=== PATIENT | female | born 1955 | race Caucasian/White ===

== ENCOUNTER 2024-03-25 12:35 | Emergency (ER) | payer MEDICARE, SELFPAY ==
[2024-03-25 12:44] VITALS: BP 131/89; PULSE 87; RESP 18; TEMP 36.7; O2SAT 96
--- NOTE | 2024-03-25 13:15 | EKG_ITS ---
[facility] Test Date: 2024-03-25 Pat Name: JOSSELIN CHARLES Department: Room: - Gender: Female Vice President Of Business Development: : 1955 Requested By: Edward Ochoa (RADHA) Order Number: [id number] Reading MD: Edward Ochoa (NUMERICAL CONTROL TOOL PROGRAMMER) Measurements Intervals [place] Rate: 74 P: 48 CO: 144 QRS: 31 QRSD: 91 T: 31 QT: 394 QTc: 438 Interpretive Statements SINUS RHYTHM No previous ECG available for comparison /store/S0/[id number]/ecg/[id number]
--- NOTE | 2024-03-25 13:29 | XR_ITS ---
Examination: CT abdomen and pelvis without contrast. Coronal 3-D reconstructions. Sagittal 2-D reconstructions. Date and time of exam:March 25, 2024 1455 hrs. Indications: Nausea vomiting abdominal pain beginning 5 days ago, bowel obstruction diagnosis CTDI: vol (mGy): 8.45 DLP: (mGycm): 423 Technique: Axial images of the abdomen have been obtained, 3 mm slice thickness Intravenous contrast material has not been administered. Low dose protocols were performed. One or more of the following dose reduction techniques were used; automated exposure control, adjustment of the mA and/or KV according to patient size, use of iterative reconstruction technique. Findings: No focal liver or splenic lesions Gallstones Gallbladder wall appears mildly thickened No pancreatic or adrenal mass Spleen is not enlarged Mild to moderate bilateral renal parenchymal scar formation, 1 mm calculus lower pole left kidney coronal image 75 4 cm fat-containing umbilical hernia containing colon but no incarcerated bowel Multiple mildly fluid distended small bowel loops especially in the pelvis Moderate stool throughout the colon Contracted urinary bladder with wall thickening up to 8 mm Absent uterus No pelvic mass Extensive lumbar stabilization Impression: Recommend hepatobiliary sonography follow-up to confirm cholelithiasis and exclude cholecystitis Mild to moderate bilateral renal parenchymal scar formation, 1 mm nonobstructing lower pole left renal calculus, no hydronephrosis or ureteral calculi No CT findings of appendicitis bowel obstruction or diverticulitis Small bowel ileus versus enteritis, if early small bowel obstruction is a clinical consideration, consider 3 way abdominal series follow-up
--- NOTE | 2024-03-25 13:29 | XR_ITS ---
Examination: PA lateral chest 2 views Technique: Upright PA lateral chest 2 views Exam date and time: March 25, 2024 1429 hrs. Indications: Onset chest pain today Findings: Normal heart size Atelectasis versus mild pneumonia at the lung bases and right middle lobe Extensive thoracolumbar transpedicular fixation stabilization Impression: Atelectasis versus early pneumonia in the right middle lobe and both bases, clinical correlation advised
--- NOTE | 2024-03-25 13:29 | XR_ITS ---
Examination: CT cervical spine without contrast 2-D sagittal reconstructions 2-D coronal reconstructions 3-D reconstructions. Exam date and time:March 25, 2024 1455 hrs. Indications: Neck pain beginning 5 days ago, history acute fracture right anterior ring C1, acute fracture right lamina C1 on CT cervical spine study February 01, 2024 CTDI:vol (mGy) 12 DLP: (mGycm) 251 Technique: Multiple 2 mm axial sections of the cervical spine have been obtained. The coronal and sagittal reconstructions have been obtained. 3-D reconstructions have been obtained. Low dose protocols were performed. One or more of the following dose reduction techniques were used; automated exposure control, adjustment of the mA and/or KV according to patient size, use of iterative reconstruction technique. 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
--- NOTE | 2024-03-25 13:30 | PD.EDRME ---
Rapid Medical Screening Exam RME Arrival date/time: 03/25/24 12:35 68-year-old female presents to the emergency department today via EMS complaints of abdominal pain nausea and vomiting as well as chest pain and neck pain Chief Complaint: General Adult/Misc Complain Time Seen by Provider: 03/25/24 13:23 Vital signs: Vital Signs Temperature 98.1 F 03/25/24 12:44 Pulse Rate 87 03/25/24 12:44 Respiratory Rate 18 03/25/24 12:44 Blood Pressure 131/89 H 03/25/24 12:44 Pulse Oximetry (%) 96 03/25/24 12:44 Oxygen Delivery Method Room Air 03/25/24 12:44
[2024-03-25] MEDS: ONDANSETRON ODT 4 MG TABRAP PO (13:35)
[2024-03-25 14:09] LABS: Basophils % (Auto) 0 % (0-2.5); Eosinophils # (Auto) 0.1 Thou/mm3 (0.0-0.5); Eosinophils % (Auto) 1 % (0-10); Hematocrit 34.5 % (36.0-46.0); Hemoglobin 11.4 g/dL (12.0-16.0); Immature Granulocytes % (Auto) 0 % (0-0); Immature Granulocytes Auto 0.02 Thou/mm3 (0.00-0.00); Lymphocytes # (Auto) 0.9 Thou/mm3 (1.0-4.8); Lymphocytes % (Auto) 9 % (10-50); Mean Corpuscular Hemoglobin 31.8 pg (25.0-35.0); Mean Corpuscular Volume 96 fL (80-100); Monocytes # (Auto) 0.5 Thou/mm3 (0.0-0.8); Monocytes % (Auto) 5 % (0-12); Neutrophils # (Auto) 8.1 Thou/mm3 (1.8-7.7); Neutrophils % (Auto) 85 % (37-80); Nucleated Red Blood Cell % 0 /100 WBC (0); Platelet Count 340 Thou/mm3 (140-440); RDW Standard Deviation 43.3 fL (36.4-46.3); Red Blood Count 3.59 Miln/mm3 (4.00-5.20); White Blood Count 9.5 Thou/mm3 (3.6-11.0)
[2024-03-25 14:17] LABS: INR 0.9 (0.9-1.3); Partial Thromboplastin Time 28.5 Seconds (22.0-36.0); Prothrombin Time 10.4 Seconds (9.0-12.2)
[2024-03-25 14:18] LABS: B-Type Natriuretic Peptide 50 pg/mL (0-100)
[2024-03-25 14:23] LABS: Albumin, Serum 4.4 gm/dL (3.4-4.8); Albumin/Globulin Ratio 1.8 (1.2-2.2); Alkaline Phosphatase 77 U/L (46-116); Anion Gap 6 (7-16); Aspartate Amino Transferase < 10 U/L (0-34); BUN/Creatinine Ratio 27 Ratio (12-20); Bilirubin,Total 0.5 mg/dL (0.3-1.2); Blood Urea Nitrogen 16 mg/dL (9-23); Calcium 9.4 mg/dL (8.3-10.6); Calcium (Corrected) 9.4 mg/dL (8.5-10.1); Carbon Dioxide 23.3 mMol/L (20.0-31.0); Chloride 105 mMol/L (98-107); Creatinine (Component) 0.6 mg/dL (0.6-1.3); Globulin 2.5 gm/dL (2.3-3.5); Glucose 177 mg/dL (74-106); Lipase 35 U/L (12-53); Osmolality,Calculated 273 (275-295); Potassium 4.6 mMol/L (3.4-5.1); Sodium 134 mMol/L (136-145); Total Protein 6.9 gm/dL (5.7-8.2); Troponin I < 0.002 ng/mL (0.0-0.045); eGFR > 60 See Note
[2024-03-25 14:33] LABS: Alanine Aminotransferase < 7 U/L (10-49)
[2024-03-25 15:13] LABS: Collection Type, Urine Clean Catch
[2024-03-25 15:32] LABS: Bilirubin,Urine Negative (Negative); Blood,Urine Negative (Negative); Clarity,Urine Clear (Clear/Hazy); Color,Urine Yellow (Lt Yel-Yel); Glucose, Urine Negative (Negative); Hyaline Casts,Urine < 1 /hpf (0-1); Ketones,Urine 2+ (Negative); Leukocyte Esterase,Urine Positive (Negative); Nitrite,Urine Negative (Negative); Protein,Urine 1+ (Neg - Trace); RBC,Urine 1 /hpf (0-3); Specific Gravity,Urine 1.029 (1.001-1.035); Squamous Epithelial Cell,Urine 2 /hpf (0-5); Urobilinogen,Urine Negative mg/dL (0.0-1.0); WBC,Urine 3 /hpf (0-5)
[2024-03-25 17:03] VITALS: BP 151/78; PULSE 85; RESP 18; TEMP 37.4; O2SAT 97
[2024-03-25 20:31] VITALS: BP 145/83; PULSE 72; RESP 18; TEMP 36.9; O2SAT 99
--- NOTE | 2024-03-25 20:44 | PD.EDADULT ---
ED General RME/HPI General Chief complaint: General Adult/Misc Complain Stated complaint: CHEST PAIN Time Seen by Provider: 03/25/24 13:23 Arrival date/time: 03/25/24 12:35 Limitations: no limitations RME / HPI RME / HPI narrative: 03/25/24 12:35 68-year-old female presents to the emergency department today via EMS complaints of abdominal pain nausea and vomiting as well as chest pain and neck pain. ------- Dr. Bedoya's Main ED Evaluation: 68-year-old female coming from home with history of chronic neck pain from her C1 fracture, and anxiety that started this morning. The patient states that she normally takes her hide hydrocodone and her antianxiety medication but did not take it. She then started having some chest discomfort that has gotten worse throughout the day. No nausea or vomiting. Patient feels lousy. No lightheadedness or syncope. Patient states she is unable to tolerate liquids at this time. Related Data Home Medications ?Medication ?Instructions ?Recorded ?Confirmed bupropion HCl 150 mg tablet,12 hr 150 mg PO TID ##0 12/11/14 sustained-release (Wellbutrin SR) metformin 1,000 mg tablet 1,000 mg PO BID #0 tabs 12/11/14 (Glucophage) omeprazole 20 mg capsule,delayed 20 mg PO BID ##0 12/11/14 release (Prilosec) sitagliptin phosphate 100 mg 100 mg PO QDAY #0 tabs 12/11/14 tablet (Januvia) rifaximin 200 mg tablet (Xifaxan) 200 mg PO TID #0 tabs 04/26/15 Previous Rx's ?Medication ?Instructions ?Recorded ondansetron 4 mg disintegrating 4 mg PO Q8H PRN nausea and 04/05/21 tablet vomiting #12 tabs Allergies Allergy/AdvReac Type Severity Reaction Status Date / Time aspirin Allergy Mild SKIN Verified 04/05/21 09:40 CRAWLS, UNCOMFORTABLE oxycodone Allergy Mild SKIN Verified 04/05/21 09:40 CRAWLS, UNCOMFORTABLE carisoprodol Allergy Unknown INSOMIA Verified 04/05/21 09:40 Review of Systems Review of Systems Systems Reviewed: All systems reviewed, normal except as documented Past Medical History Social History SMOKING STATUS: Never smoker ED Exam Narrative Physical exam: Patient appears chronically ill General Limitations: Present no limitations General appearance: Present alert, cachectic and other Head Head exam: Present atraumatic Eye Eye exam: Present normal appearance and EOMI ENT ENT exam: Present normal exam, normal oropharynx and mucous membranes dry Neck Neck exam: Present normal inspection, full ROM and trachea midline Chest Chest inspection: Present normal inspection and symmetric chest wall rise; Absent tenderness or rash Respiratory Respiratory exam: Present normal lung sounds bilaterally Cardiovascular Cardiovascular exam: Present regular rate, normal rhythm and normal heart sounds Abdominal Exam Abdominal exam: Present soft, guarding and normal bowel sounds; Absent rebound Extremities Exam Extremities exam: Present normal inspection and full ROM Back Exam Back exam: Present normal inspection and full ROM Neurological Exam Neurological exam: Present alert, oriented X3 and CN II-XII intact Psychiatric Psychiatric exam: Present normal affect and normal mood Skin Skin exam: Present warm, dry, intact and normal color Course Course Course Narrative: Patient treated with IV fluids Quality Measures none Orders Category Date Time Status EKG (ED ONLY) *Do not use* NOW Care 03/25/24 13:[address] abdomen pelvis wo con Stat Exams 03/25/24 13:[address] cervical spine wo con Stat Exams 03/25/24 13:29 Completed EKG (ED Only) Stat Exams 03/25/24 13:15 Draft XR chest 2V Stat Exams 03/25/24 13:29 Completed B-Type Natriuretic Peptide Stat Lab 03/25/24 13:38 Completed CBC Stat Lab 03/25/24 13:38 Completed Comprehensive Metabolic Panel Stat Lab 03/25/24 13:38 Completed Lipase Stat Lab 03/25/24 13:38 Completed Magnesium Stat Lab 03/25/24 13:38 Completed Partial Thromboplastin Time Stat Lab 03/25/24 13:38 Completed Prothrombin Time with INR Stat Lab 03/25/24 13:38 Completed Troponin I Stat Lab 03/25/24 13:38 Completed Urinalysis Stat Lab 03/25/24 14:48 Completed HYDROcodone*/APAP 5/325 [[place] 5/325] Med 03/25/24 21:02 Discontinued 1 tab PO X1 ONE LORazepam [Ativan] Med 03/25/24 21:02 Discontinued 1 mg PO X1 ONE Morphine Inj Med 03/25/24 22:29 Discontinued 4 mg IVP X1 ONE Ondansetron Inj [Zofran Inj] Med 03/25/24 22:30 Discontinued 4 mg IV X1 ONE Ondansetron Odt [Zofran Odt] Med 03/25/24 13:30 Discontinued 4 mg PO X1 ONE Sodium Chloride 0.9% 1000 ml [Ns] 1,000 ml Med 03/25/24 22:23 Discontinued IV 999 mls/hr Vital Signs Vital signs: Vital Signs Temperature 98.1 F 03/25/24 12:44 Pulse Rate 87 03/25/24 12:44 Respiratory Rate 18 03/25/24 12:44 Blood Pressure 131/89 H 03/25/24 12:44 Pulse Oximetry (%) 96 03/25/24 12:44 Oxygen Delivery Method Room Air 03/25/24 12:44 Pulse ox is 96% on room air, which is normal according to my interpretation. [facility] Patient data External records reviewed:: [facility] previous records (Per chart review, patient was seen here on 02/01/24 for a C1 cervical fracture and was transferred to [facility].) Clinical information provided by:: patient Social determinants that could affect healthcare access:: none Patient has the following chronic illnesses:: chronic back pain How is presenting disease/condition affected by chronic disease/condition?: uneffected by Evaluation data The following diagnostics were reviewed and interpreted by me:: lab results, radiology exam(s) and EKG tracing(s) Lab and/or radiology exams considered but not ordered:: none Interpretation Summary: CBC is normal, Glucose is 177, troponin is normal, BNP is normal, Lipase is normal, PTT is normal, PT and INR are normal, UA shows 1+ protein, 2+ ketones, and positive leukocyte esterase, according to my interpretation. EKG done at 1321, NSR, rate of 74, normal intervals, normal axis, no acute ST or T-wave changes, no STEMI, according to my interpretation. ---- I have personally reviewed the radiology data and agree with the radiologist's interpretation below: [facility] Report Signed Patient: JOSSELIN CHARLES [facility]. Record#: [id number] Birthdate: 1955 Age/Sex: 68 / F Location: [facility] Attending Dr: Ordering Physician: Don OJEDA)Edward NP Date of Service: 03/25/24 Procedure(s): XR chest 2V Accession Number(s): [id number] cc: Don OJEDA),Edward GARCIA; Jose Raul Colon MD~ Examination: PA lateral chest 2 views Technique: Upright PA lateral chest 2 views Exam date and time: March 25, 2024 1429 hrs. Indications: Onset chest pain today Findings: Normal heart size Atelectasis versus mild pneumonia at the lung bases and right middle lobe Extensive thoracolumbar transpedicular fixation stabilization Impression: Atelectasis versus early pneumonia in the right middle lobe and both bases, clinical correlation advised Dictated By: Jose Raul Colon MD Signed By: <Electronically signed by Jose Raul Colon MD in OV> 03/25/24 1436 [facility] Report Signed Patient: JOSSELIN CHARLES. Record#: [id number] Birthdate: 1955 Age/Sex: 68 / F Location: [facility] Attending Dr: Ordering Physician: Don OJEDA)Edward NP Date of Service: 03/25/24 Procedure(s): CT cervical spine wo con Accession Number(s): [id number] cc: Don OJEDA),Edward GARCIA; Jose Raul Colon MD; LINDY FELDER~ Examination: CT cervical spine without contrast 2-D sagittal reconstructions 2-D coronal reconstructions 3-D reconstructions. Exam date and time:March 25, 2024 1455 hrs. Indications: Neck pain beginning 5 days ago, history acute fracture right anterior ring C1, acute fracture right lamina C1 on CT cervical spine study February 01, 2024 CTDI:vol (mGy) 12 DLP: (mGycm) 251 Technique: Multiple 2 mm axial sections of the cervical spine have been obtained. The coronal and sagittal reconstructions have been obtained. 3-D reconstructions have been obtained. Low dose protocols were performed. One or more of the following dose reduction techniques were used; automated exposure control, adjustment of the mA and/or KV according to patient size, use of iterative reconstruction technique. 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 Dictated By: Jose Raul Colon MD Signed By: <Electronically signed by Jose Raul Colon MD in OV> 03/25/24 1507 [facility] Report Signed Patient: JOSSELIN CHARLES. Record#: [id number] Birthdate: 1955 Age/Sex: 68 / F [facility] Attending Dr: Ordering Physician: Don OJEDA)Edward NP Date of Service: 03/25/24 Procedure(s): CT abdomen pelvis wo con Accession Number(s): [id number] cc: Don OJEDA),Edward GARCIA; Jose Raul Colon MD; LINDY FELDER Examination: CT abdomen and pelvis without contrast. Coronal 3-D reconstructions. Sagittal 2-D reconstructions. Date and time of exam:March 25, 2024 1455 hrs. Indications: Nausea vomiting abdominal pain beginning 5 days ago, bowel obstruction diagnosis CTDI: vol (mGy): 8.45 DLP: (mGycm): 423 Technique: Axial images of the abdomen have been obtained, 3 mm slice thickness Intravenous contrast material has not been administered. Low dose protocols were performed. One or more of the following dose reduction techniques were used; automated exposure control, adjustment of the mA and/or KV according to patient size, use of iterative reconstruction technique. Findings: No focal liver or splenic lesions Gallstones Gallbladder wall appears mildly thickened No pancreatic or adrenal mass Spleen is not enlarged Mild to moderate bilateral renal parenchymal scar formation, 1 mm calculus lower pole left kidney coronal image 75 4 cm fat-containing umbilical hernia containing colon but no incarcerated bowel Multiple mildly fluid distended small bowel loops especially in the pelvis Moderate stool throughout the colon Contracted urinary bladder with wall thickening up to 8 mm Absent uterus No pelvic mass Extensive lumbar stabilization Impression: Recommend hepatobiliary sonography follow-up to confirm cholelithiasis and exclude cholecystitis Mild to moderate bilateral renal parenchymal scar formation, 1 mm nonobstructing lower pole left renal calculus, no hydronephrosis or ureteral calculi No CT findings of appendicitis bowel obstruction or diverticulitis Small bowel ileus versus enteritis, if early small bowel obstruction is a clinical consideration, consider 3 way abdominal series follow-up Dictated By: Jose Raul Colon MD Signed By: <Electronically signed by Jose Raul Colon MD in OV> 03/25/24 1611 Medications Medications considered but not ordered:: none Medication administrations:: Medication Administration History Discontinued Medications Hydrocodone Bitart/Acetaminophen (Hydrocodone/Apap 5/325 Tablet) 1 tab PO X1 ONE Stop: 03/25/24 21:03 Last Admin: 03/25/24 21:21 Dose: 1 tab Documented By: MARIBEL Sodium Chloride (Ns) 1,000 mls @ 999 mls/hr IV .Q1H1M ONE Stop: 03/25/24 23:23 Last Infusion: 03/25/24 23:45 Dose: Infused Documented By: Admin: 03/25/24 22:25 Dose: 999 mls/hr Documented By: RANDALL Lorazepam (Lorazepam 0.5 Mg Tablet) 1 mg PO X1 ONE Stop: 03/25/24 21:03 Last Admin: 03/25/24 21:21 Dose: 1 mg Documented By: MARIBEL Morphine Sulfate (Morphine Sulf Inj 10 Mg/Ml Vial) 4 mg IVP X1 ONE Stop: 03/25/24 22:30 Last Admin: 03/25/24 22:39 Dose: 4 mg Documented By: RANDALL Ondansetron HCl (Ondansetron Odt 4 Mg Tabrap) 4 mg PO X1 ONE; Protocol Stop: 03/25/24 13:31 Last Admin: 03/25/24 13:35 Dose: 4 mg Documented By: ALICIA Ondansetron HCl (Ondansetron Inj 2 Mg/Ml Inj 2 Ml) 4 mg IV X1 ONE; Protocol Stop: 03/25/24 22:31 Last Admin: 03/25/24 22:40 Dose: 4 mg Documented By: RANDALL see above Consultations Consultation(s) initiated? (list below): No Diagnosis Differential Diagnosis ED Complaint MDM: gastritis, dehydration, electrolyte abnormality, anxiety Most likely diagnosis given after review of the tests above:: see below Admission Indicated Admission indicated?: not indicated Explain why admission is indicated or not indicated:: Patient is stable for outpatient f/u. Admission Request Was there a request for admission?: No Disposition Plan Disposition Plan: Discharge Discharge Attestation Discharge Attestation: The patient and all family members were given an opportunity to ask questions and understood the discharge instructions. Discharge instructions specifically effects, indications for sooner follow up or return to the emergency department, and the expected course of current diagnosis. Patient condition: Stable Medical Decision Making Differential Diagnosis Differential Diagnosis: gastritis, dehydration, electrolyte abnormality, anxiety Lab Data 03/25/24 13:38 03/25/24 13:38 Labs: Lab Results 03/25/24 03/25/24 Range/Units 13:38 14:48 WBC 9.5 (3.6-11.0) Thou/mm3 RBC 3.59 L (4.00-5.20) Miln/mm3 Hgb 11.4 L (12.0-16.0) g/dL Hct 34.5 L (36.0-46.0) % MCV 96 (80-100) fL MCH 31.8 (25.0-35.0) pg MCHC 33.0 (31.0-37.0) g/dl RDW Std Deviation 43.3 (36.4-46.3) fL Plt Count 340 (140-440) Thou/mm3 Neut % (Auto) 85 H (37-80) % Lymph % (Auto) 9 L (10-50) % [place] % (Auto) 5 (0-12) % Eos % (Auto) 1 (0-10) % Baso % (Auto) 0 (0-2.5) % Neut # (Auto) 8.1 H (1.8-7.7) Thou/mm3 Lymph # (Auto) 0.9 L (1.0-4.8) Thou/mm3 [place] # (Auto) 0.5 (0.0-0.8) Thou/mm3 Eos # (Auto) 0.1 (0.0-0.5) Thou/mm3 Baso # (Auto) 0.0 (0.0-0.2) Thou/mm3 Immature Gran # (Auto) 0.02 H (0.00-0.00) Thou/mm3 Absolute Nucleated RBC 0.00 (0.00-0.00) Thou/mm3 Immature Gran % 0 (0-0) % Nucleated RBC % 0 (0) /100 WBC PT 10.4 (9.0-12.2) Seconds INR 0.9 (0.9-1.3) APTT 28.5 (22.0-36.0) Seconds Sodium 134 L (136-145) mMol/L Potassium 4.6 (3.4-5.1) mMol/L Chloride 105 (98-107) mMol/L Carbon Dioxide 23.3 (20.0-31.0) mMol/L Anion Gap 6 L (7-16) BUN 16 (9-23) mg/dL Creatinine 0.6 (0.6-1.3) mg/dL Estim Creat Clear Calc Not Performed. eGFR > 60 (60 - ) See Note BUN/Creatinine Ratio 27 H (12-20) Ratio Glucose 177 H (74-106) mg/dL Calculated Osmolality 273 L (275-295) Calcium 9.4 (8.3-10.6) mg/dL Corrected Calcium 9.4 (8.5-10.1) mg/dL Magnesium 2.0 (1.6-2.6) mg/dL Total Bilirubin 0.5 (0.3-1.2) mg/dL AST < 10 (0-34) U/L ALT < 7 L (10-49) U/L Alkaline Phosphatase 77 (46-116) U/L Troponin I < 0.002 (0.0-0.045) ng/mL B-Natriuretic Peptide 50 (0-100) pg/mL Total Protein 6.9 (5.7-8.2) gm/dL Albumin 4.4 (3.4-4.8) gm/dL Globulin 2.5 (2.3-3.5) gm/dL Albumin/Globulin Ratio 1.8 (1.2-2.2) Lipase 35 (12-53) U/L Ur Collection Type Clean Catch Urine Color Yellow (Lt Yel-Yel) Urine Clarity Clear (Clear/Hazy) Urine pH 6.0 (5.0-7.0) Ur Specific [place] 1.029 (1.001-1.035) Urine Protein 1+ A (Neg - Trace) Urine Glucose (UA) Negative (Negative) Urine Ketones 2+ A (Negative) Urine Blood Negative (Negative) Urine Nitrite Negative (Negative) Urine Bilirubin Negative (Negative) Urine Urobilinogen (Auto) Negative (0.0-1.0) mg/dL Ur Leukocyte Esterase Positive (Negative) Urine RBC 1 (0-3) /hpf Urine WBC 3 (0-5) /hpf Ur Squamous Epith Cells 2 (0-5) /hpf Urine Bacteria None (None) Hyaline Casts < 1 (0-1) /hpf Discharge Plan Plan Patient Disposition: HOME (Self Care) Prescriptions/Referrals Prescriptions/Med Rec: No Action bupropion HCl [Wellbutrin SR] 150 MG tablet extended release 12 hr 150 mg PO TID Qty: 0 metformin [Glucophage] 1,000 MG tablet 1,000 mg PO BID Qty: 0 omeprazole [Prilosec] 20 MG capsule,delayed release(DR/EC) 20 mg PO BID Qty: 0 Patient Comments: TO SUPPRESS GASTRIC ACID SECRETIONS sitagliptin phosphate [Januvia] 100 MG tablet 100 mg PO QDAY Qty: 0 rifaximin [Xifaxan] 200 MG tablet 200 mg PO TID Qty: 0 ondansetron 4 mg tablet,disintegrating 4 mg PO Q8H PRN (Reason: nausea and vomiting) Qty: 12 0RF Referrals: Lindy Felder [Primary Care Provider] - In 1 week Problem List Clinical Impression: Nausea Patient/Caregiver Discharge Instructions Education Materials: Nausea Vomit Control Additional Instructions: Stay hydrated with Pedialyte or Gatorade. Return to emergency department as worsening symptoms or any other concerns. Please take your medications as prescribed. Print Language: Cameroonian Stand Alone Forms: [employer]i Award Info., Patient Portal Info Letter
[2024-03-25] MEDS: HYDROcodone/APAP 5/325 TABLET 1 TAB PO (21:21)
[2024-03-25] MEDS: LORazepam 0.5 MG TABLET 1 MG PO (21:21)
[2024-03-25 22:00] VITALS: BP 153/90; PULSE 82; RESP 16; O2SAT 95
[2024-03-25 22:23] VITALS: BMI 25.7
[2024-03-25] MEDS: SODIUM CHLORIDE 0.9% 1000 ML 1,000 ML 999 ML IV (22:25)
[2024-03-25] MEDS: MORPHINE SULF INJ 10 MG/ML VIAL 4 MG IVP (22:39)
[2024-03-25] MEDS: ONDANSETRON INJ 2 MG/ML INJ 2 ML 4 MG IV (22:40)
[2024-03-26] VITALS: BP 146/67; PULSE 89; RESP 16; O2SAT 95
--- NOTE | 2024-03-26 00:12 | PC.NURSE ---
PT SLEEPING COMFORTABLE NO ACUTE DISTRESS NOTED.
[2024-03-26 02:00] VITALS: BP 135/66; PULSE 89; RESP 19; TEMP 37.1; O2SAT 95
== END 2024-03-26 02:26 | disposition home or self-care (01) ==
PROVIDERS: Nurse Practitioner Primary Care; Emergency Provider Emergency Medicine
DX: N20.0 Calculus of kidney (principal); N28.89 Other specified disorders of kidney and ureter; M50.321 Other cervical disc degeneration at C4-C5 level; Z98.1 Arthrodesis status; S14.101D Unspecified injury at C1 level of cervical spinal cord, subsequent encounter; S12.090K Other displaced fracture of first cervical vertebra, subsequent encounter for fracture with nonunion; X58.XXXD Exposure to other specified factors, subsequent encounter; R07.9 Chest pain, unspecified
CPT/HCPCS: 36415; 71046; 72125; 74176; 80053; 81001; 83690; 83735; 83880; 84484; 85025; 85610; 85730; 93005; 96361; 96374; 96375; 99284; J2270; J2405; J7030; Q0162; A9270

== ENCOUNTER 2024-04-24 15:32 | Emergency (ER) | payer MEDICARE, SELFPAY ==
[2024-04-24 16:00] VITALS: BP 112/68; PULSE 77; PULSE 80; RESP 19; TEMP 37.1; O2SAT 97; O2SAT 99; BMI 25.3
--- NOTE | 2024-04-24 16:05 | EKG_ITS ---
[facility] Test Date: 2024-04-24 Pat Name: JOSSELIN CHARLES Department: Room: - Gender: Female Pad Hand: : 1955 Requested By: Sean Shaffer Order Number: [id number] Reading MD: Sean Shaffer Measurements Intervals [place] Rate: 72 P: ME: QRS: 47 QRSD: 94 T: 30 QT: 391 QTc: 428 Interpretive Statements SINUS RHYTHM WITH HIGH GRADE AV BLOCK Compared to ECG 03/25/2024 13:21:54 No significant changes /store/S0/[id number]
--- NOTE | 2024-04-24 16:05 | EDNOTE_ITS ---
ED General RME/HPI General Chief complaint: Altered Mental Status Stated complaint: DISORIENTED Time Seen by Provider: 04/24/24 16:04 Arrival date/time: 04/24/24 15:32 CC: Weak lightheaded with headache HPI ongoing since yesterday morning. Patient is very anxious EMS reports stable vital signs and route. Patient states she is also had a single episode of vomiting but has had been nauseated for the past 2 days. Patient denies diarrhea or chest pain. Related Data Home Medications ?Medication ?Instructions ?Recorded ?Confirmed bupropion HCl 150 mg tablet,12 hr 150 mg PO TID ##0 12/11/14 sustained-release (Wellbutrin SR) metformin 1,000 mg tablet 1,000 mg PO BID #0 tabs 12/11/14 (Glucophage) omeprazole 20 mg capsule,delayed 20 mg PO BID ##0 12/11/14 release (Prilosec) sitagliptin phosphate 100 mg 100 mg PO QDAY #0 tabs 12/11/14 tablet (Januvia) rifaximin 200 mg tablet (Xifaxan) 200 mg PO TID #0 tabs 04/26/15 Previous Rx's ?Medication ?Instructions ?Recorded ondansetron 4 mg disintegrating 4 mg PO Q8H PRN nausea and 04/05/21 tablet vomiting #12 tabs hydroxyzine HCl 25 mg tablet 25 mg PO .Nightly PRN itching #7 04/24/24 tabs Allergies Allergy/AdvReac Type Severity Reaction Status Date / Time aspirin Allergy Mild SKIN Verified 04/05/21 09:40 CRAWLS, UNCOMFORTABLE oxycodone Allergy Mild SKIN Verified 04/05/21 09:40 CRAWLS, UNCOMFORTABLE carisoprodol Allergy Unknown INSOMIA Verified 04/05/21 09:40 Review of Systems Review of Systems Narrative Review of Systems: GEN: No fever, no chills, no weight loss EYES: No discharge, no visual changes, no pain HEENT: No ear pain, no congestion, no sore throat PULM: No shortness of breath, no cough, no congestion CV: No chest pain, no dyspnea on exertion, no palpitations GI: + nausea, no vomiting, no diarrhea, no pain, no constipation : No frequency, no urgency, no dysuria MUSC/SKEL: No joint pain, no back pain SKIN: No rash PSYCH: No hallucinations, no depression HEME/LYMPH: No easy bleeding or bruising tendencies NEURO: + weakness, + headache Past Medical History Past Medical History CARDIAC: Negative Congestive Heart Failure RESPIRATORY: Negative Chronic Obstructive Pulmonary Disease (COPD) GENITOURINARY: Negative Renal Disease ENDOCRINE: Positive Diabetes Mellitus Type 2; Negative Diabetes Mellitus Type 1 Social History SMOKING STATUS: Never smoker ED Exam Narrative Physical exam: [General: Thin but not emaciated, very anxious, but not in any acute distress Head normocephalic HEENT: Within acceptable limits Neck is supple nontender Chest equal chest rise nontender to palpation Respiratory: Clear to auscultation no wheezes crackles or rubs CV: Rate rhythm is regular no murmurs rubs or clicks Abdomen is soft nontender no masses positive bowel sounds all 4 quadrants GI: Rectum: Moderate rectal tone vault is partially full stool is douglass-colored guaiac is negative. Back: No CVA tenderness no spinous process tenderness from cervical spine thoracic and lumbar spine Skin: Intact no petechiae rash induration ulceration or crepitus Extremities: Moving all extremity against resistance cap refill less than 2 seconds neurosensory intact. No lower extremity edema. Neuro: Awake alert oriented x2, person and place, Glascow coma 15 no focal deficits] Course Course Course Narrative: Patient refused magnesium stating that it makes her have bad diarrhea. She says she has magnesium pills at home Quality Measures none Orders Category Date Time Status EKG (ED ONLY) *Do not use* NOW Care 04/24/24 16:05 Completed EKG (ED Only) Stat Exams 04/24/24 16:05 Draft B-Type Natriuretic Peptide Stat Lab 04/24/24 16:20 Completed CBC Stat Lab 04/24/24 16:20 Completed Comprehensive Metabolic Panel Stat Lab 04/24/24 16:20 Completed Drug Screen,Urine Stat Lab 04/24/24 20:19 Completed LDH (Lactate Dehydrogenase) Stat Lab 04/24/24 16:20 Completed Magnesium Stat Lab 04/24/24 16:20 Completed Partial Thromboplastin Time Stat Lab 04/24/24 16:20 Completed Prothrombin Time with INR Stat Lab 04/24/24 16:20 Completed Troponin I Stat Lab 04/24/24 16:20 Completed Urinalysis Stat Lab 04/24/24 20:19 Completed Magnesium Sulfate 2 GM Ivpb [Magnesium Sulfate Ivpb] Med 04/24/24 19:02 Discontinued 2 gm in 50 ml IV X1 Vital Signs Vital signs: Vital Signs Temperature 98.8 F 04/24/24 16:00 Pulse Rate 77 04/24/24 16:00 Respiratory Rate 19 04/24/24 16:00 Blood Pressure 112/68 04/24/24 16:00 Pulse Oximetry (%) 97 04/24/24 16:00 Oxygen Delivery Method Room Air 04/24/24 16:00 [facility] Patient data External records reviewed:: [facility] previous records and EMS form Clinical information provided by:: patient and EMS Social determinants that could affect healthcare access:: none Patient has the following chronic illnesses:: Anxiety diabetes How is presenting disease/condition affected by chronic disease/condition?: u neffected by Evaluation data The following diagnostics were reviewed and interpreted by me:: lab results and EKG tracing(s) Lab and/or radiology exams considered but not ordered:: CBC shows no acute leukocytosis H&H of 9 and 29 no thrombocytopenia. Patient has dropped 2 g crit in the last month. Coags within acceptable limits CMP shows no acute electrolyte imbalances renal impairment transaminitis or T. bili elevation, please note the magnesium is 1.3. Guaiac is negative Troponin is negative Interpretation Summary: Patient has had 2 g crit drop, the guaiac is negative, patient states that she had a surgery and a nosebleed and thinks this contributed to that the patient is very anxious and states that nothing improved after her gallbladder was removed. Patient is awake alert oriented nontoxic-appearing not in any acute distress with very stable vital signs. I find no acute finding in her laboratory workup including her urine other than is positive for THC and opioids neither of which were administered in the emergency room. Upon speaking with the patient she reiterated she did not want the magnesium for low mag level, and immediately requested something for anxiety. I advised her that the patient can get regular anxiety medicines from her PCP and we will give her something to help her sleep tonight. Medications Medications considered but not ordered:: None Medication administrations:: Medication Administration History Discontinued Medications Magnesium Sulfate (Magnesium Sulfate Ivpb) 2 gm in 50 mls @ 25 mls/hr IV X1 ONE Stop: 04/24/24 21:01 Last Admin: 04/24/24 19:41 Dose: Not Given Documented By: ORAL Non-Admin Reason: Discontinued None Consultations Consultation(s) initiated? (list below): No Diagnosis Differential Diagnosis ED Complaint MDM: Anxiety reaction anemia thrombocytopenia Most likely diagnosis given after review of the tests above:: Anxiety, hypomagnesemia Admission Indicated Admission indicated?: not indicated Explain why admission is indicated or not indicated:: Stable for outpatient follow-up Admission Request Was there a request for admission?: No Disposition Plan Disposition Plan: Discharge Discharge Attestation Discharge Attestation: The patient and all family members were given an opportunity to ask questions and understood the discharge instructions. Discharge instructions specifically effects, indications for sooner follow up or return to the emergency department, and the expected course of current diagnosis. Patient condition: Stable Medical Decision Making Differential Diagnosis Differential Diagnosis: Anxiety reaction anemia thrombocytopenia Lab Data 04/24/24 16:20 04/24/24 16:20 Labs: Lab Results 04/24/24 04/24/24 Range/Units 16:20 20:19 WBC 7.0 (3.6-11.0) Thou/mm3 RBC 3.10 L (4.00-5.20) Miln/mm3 Hgb 9.7 L (12.0-16.0) g/dL Hct 29.3 L (36.0-46.0) % MCV 95 (80-100) fL MCH 31.3 (25.0-35.0) pg MCHC 33.1 (31.0-37.0) g/dl RDW Std Deviation 46.5 H (36.4-46.3) fL Plt Count 291 D (140-440) Thou/mm3 Neut % (Auto) 65 (37-80) % Lymph % (Auto) 24 (10-50) % [place] % (Auto) 8 (0-12) % Eos % (Auto) 2 (0-10) % Baso % (Auto) 0 (0-2.5) % Neut # (Auto) 4.6 (1.8-7.7) Thou/mm3 Lymph # (Auto) 1.7 (1.0-4.8) Thou/mm3 [place] # (Auto) 0.6 (0.0-0.8) Thou/mm3 Eos # (Auto) 0.2 (0.0-0.5) Thou/mm3 Baso # (Auto) 0.0 (0.0-0.2) Thou/mm3 Immature Gran # (Auto) 0.03 H (0.00-0.00) Thou/mm3 Absolute Nucleated RBC 0.00 (0.00-0.00) Thou/mm3 Immature Gran % 0 (0-0) % Nucleated RBC % 0 (0) /100 WBC PT 10.5 (9.0-12.2) Seconds INR 1.0 (0.9-1.3) APTT 26.2 (22.0-36.0) Seconds Sodium 141 (136-145) mMol/L Potassium 3.6 (3.4-5.1) mMol/L Chloride 106 (98-107) mMol/L Carbon Dioxide 25.6 (20.0-31.0) mMol/L Anion Gap 9 (7-16) BUN 9 (9-23) mg/dL Creatinine 0.6 (0.6-1.3) mg/dL Estim Creat Clear Calc Not Performed. eGFR > 60 (60 - ) See Note BUN/Creatinine Ratio 15 (12-20) Ratio Glucose 133 H (74-106) mg/dL Calculated Osmolality 281 (275-295) Calcium 8.4 (8.3-10.6) mg/dL Corrected Calcium 8.6 (8.5-10.1) mg/dL Magnesium 1.3 L (1.6-2.6) mg/dL Total Bilirubin 0.2 L (0.3-1.2) mg/dL AST 11 (0-34) U/L ALT 8 L (10-49) U/L Alkaline Phosphatase 56 (46-116) U/L Lactate Dehydrogenase 168 (120-246) U/L Troponin I < 0.020 (0.0-0.045) ng/mL B-Natriuretic Peptide 52 (0-100) pg/mL Total Protein 5.8 (5.7-8.2) gm/dL Albumin 3.7 (3.4-4.8) gm/dL Globulin 2.1 L (2.3-3.5) gm/dL Albumin/Globulin Ratio 1.8 (1.2-2.2) Ur Collection Type Clean Catch Urine Color Lt-Yellow (Lt Yel-Yel) Urine Clarity Clear (Clear/Hazy) Urine pH 6.0 (5.0-7.0) Ur Specific [place] 1.015 (1.001-1.035) Urine Protein Negative (Neg - Trace) Urine Glucose (UA) Trace (Negative) Urine Ketones Negative (Negative) Urine Blood Negative (Negative) Urine Nitrite Negative (Negative) Urine Bilirubin Negative (Negative) Urine Urobilinogen (Auto) Negative (0.0-1.0) mg/dL Ur Leukocyte Esterase Negative (Negative) Urine RBC 3 (0-3) /hpf Urine WBC 2 (0-5) /hpf Ur Squamous Epith Cells < 1 (0-5) /hpf Urine Bacteria Rare (None) Urine Yeast (Budding) Present A (None) Urine Opiates Screen Positive A (Negative) Urine Fentanyl Screen Negative (Negative) Ur Barbiturates Screen Negative (Negative) U Amphetamin/Meth Scrn Negative (Negative) U Benzodiazepines Scrn Negative (Negative) U Cocaine Metab Screen Negative (Negative) U Marijuana (THC) Screen Positive A (Negative) Discharge Plan Plan Patient Disposition: HOME (Self Care) Patient condition on transfer: Stable Prescriptions/Referrals Prescriptions/Med Rec: New hydroxyzine HCl 25 mg tablet 25 mg PO .Nightly PRN (Reason: itching) Qty: 7 0RF No Action bupropion HCl [Wellbutrin SR] 150 MG tablet extended release 12 hr 150 mg PO TID Qty: 0 metformin [Glucophage] 1,000 MG tablet 1,000 mg PO BID Qty: 0 omeprazole [Prilosec] 20 MG capsule,delayed release(DR/EC) 20 mg PO BID Qty: 0 Patient Comments: TO SUPPRESS GASTRIC ACID SECRETIONS sitagliptin phosphate [Januvia] 100 MG tablet 100 mg PO QDAY Qty: 0 rifaximin [Xifaxan] 200 MG tablet 200 mg PO TID Qty: 0 ondansetron 4 mg tablet,disintegrating 4 mg PO Q8H PRN (Reason: nausea and vomiting) Qty: 12 0RF Referrals: No Primary/Family,Physician [Primary Care Provider] - In 1 week Narayan Quick MD [Physician] - In 1 week Problem List Clinical Impression: Hypomagnesemia, Anxiety Patient/Caregiver Discharge Instructions Education Materials: ED Anxiety Reaction Additional Instructions: Take your magnesium pills at home as you stated you would. Follow-up with your primary care provider. Talk to your primary care doctor about medicines for anxiety. Print Language: Jamaican Stand Alone Forms: Desi Award Info., Patient Portal Info Letter PA/BLAST FURNACE HELPER Supervising Physician PA/BLAST FURNACE HELPER Supervising Physician: Sean Bray ENP
[2024-04-24 16:32] LABS: Basophils % (Auto) 0 % (0-2.5); Eosinophils # (Auto) 0.2 Thou/mm3 (0.0-0.5); Eosinophils % (Auto) 2 % (0-10); Hematocrit 29.3 % (36.0-46.0); Hemoglobin 9.7 g/dL (12.0-16.0); Immature Granulocytes % (Auto) 0 % (0-0); Immature Granulocytes Auto 0.03 Thou/mm3 (0.00-0.00); Lymphocytes # (Auto) 1.7 Thou/mm3 (1.0-4.8); Lymphocytes % (Auto) 24 % (10-50); Mean Corpuscular HGB Conc 33.1 g/dl (31.0-37.0); Mean Corpuscular Hemoglobin 31.3 pg (25.0-35.0); Mean Corpuscular Volume 95 fL (80-100); Monocytes # (Auto) 0.6 Thou/mm3 (0.0-0.8); Monocytes % (Auto) 8 % (0-12); Neutrophils # (Auto) 4.6 Thou/mm3 (1.8-7.7); Neutrophils % (Auto) 65 % (37-80); Nucleated Red Blood Cell % 0 /100 WBC (0); Platelet Count 291 Thou/mm3 (140-440); RDW Standard Deviation 46.5 fL (36.4-46.3)
[2024-04-24 16:46] LABS: Partial Thromboplastin Time 26.2 Seconds (22.0-36.0); Prothrombin Time 10.5 Seconds (9.0-12.2)
[2024-04-24 17:05] LABS: B-Type Natriuretic Peptide 52 pg/mL (0-100)
[2024-04-24 17:18] LABS: Alanine Aminotransferase 8 U/L (10-49); Albumin, Serum 3.7 gm/dL (3.4-4.8); Albumin/Globulin Ratio 1.8 (1.2-2.2); Alkaline Phosphatase 56 U/L (46-116); Anion Gap 9 (7-16); Aspartate Amino Transferase 11 U/L (0-34); BUN/Creatinine Ratio 15 Ratio (12-20); Bilirubin,Total 0.2 mg/dL (0.3-1.2); Blood Urea Nitrogen 9 mg/dL (9-23); Calcium 8.4 mg/dL (8.3-10.6); Calcium (Corrected) 8.6 mg/dL (8.5-10.1); Carbon Dioxide 25.6 mMol/L (20.0-31.0); Chloride 106 mMol/L (98-107); Creatinine (Component) 0.6 mg/dL (0.6-1.3); Globulin 2.1 gm/dL (2.3-3.5); Glucose 133 mg/dL (74-106); LDH (Lactate Dehydrogenase) 168 U/L (120-246); Magnesium 1.3 mg/dL (1.6-2.6); Osmolality,Calculated 281 (275-295); Potassium 3.6 mMol/L (3.4-5.1); Sodium 141 mMol/L (136-145); Total Protein 5.8 gm/dL (5.7-8.2); Troponin I < 0.020 ng/mL (0.0-0.045); eGFR > 60 See Note
[2024-04-24 18:21] VITALS: BP 114/60; PULSE 69; RESP 16; TEMP 36.4; O2SAT 96
[2024-04-24 20:34] LABS: Collection Type, Urine Clean Catch
[2024-04-24 20:45] VITALS: BP 125/67; PULSE 71; RESP 16; O2SAT 95
[2024-04-24 20:47] LABS: Bacteria,Urine Rare; Bilirubin,Urine Negative (Negative); Blood,Urine Negative (Negative); Budding Yeast,Urine Present; Clarity,Urine Clear (Clear/Hazy); Color,Urine Lt-Yellow (Lt Yel-Yel); Glucose, Urine Trace (Negative); Ketones,Urine Negative (Negative); Leukocyte Esterase,Urine Negative (Negative); Nitrite,Urine Negative (Negative); Protein,Urine Negative (Neg - Trace); RBC,Urine 3 /hpf (0-3); Specific Gravity,Urine 1.015 (1.001-1.035); Squamous Epithelial Cell,Urine < 1 /hpf (0-5); Urobilinogen,Urine Negative mg/dL (0.0-1.0); WBC,Urine 2 /hpf (0-5)
[2024-04-24 20:52] LABS: Amphetamine/Methamp Scrn,U Negative (Negative); Barbiturate Screen,Urine Negative (Negative); Benzodiazepines Screen,Urine Negative (Negative); Benzoylecgonine Screen, Ur Negative (Negative); Fentanyl Screen,Urine Negative (Negative); Opiate Screen,Urine Positive (Negative); THC Screen,Urine Positive (Negative)
[2024-04-24 21:45] VITALS: PULSE 85; RESP 20; O2SAT 99
== END 2024-04-24 21:47 | disposition home or self-care (01) ==
PROVIDERS: Registered Nurse General Practice; Emergency Provider Emergency Medicine
DX: E83.42 Hypomagnesemia (principal); F41.9 Anxiety disorder, unspecified; I44.30 Unspecified atrioventricular block
CPT/HCPCS: 36415; 80053; 80307; 81001; 83615; 83735; 83880; 84484; 85025; 85610; 85730; 93005; 99283